=== PATIENT | male | born 1995 | race American Indian/Alaskan Native ===

== ENCOUNTER 2019-11-17 23:57 | Emergency (ER) | payer SELFPAY ==
[2019-11-18] MEDS ORDERED: ZIPRASIDONE MESYLATE 20 MG VIAL IM ONE ×3 (00:21→10:35)
[2019-11-18] MEDS ORDERED: WATER FOR INJ Sterile (PF) 10 ML ONE ×3 (00:22→19:13)
[2019-11-18 01:05] LABS: Bacteria,Urine 1+ /HPF (Negative); Bilirubin,Urine NEG (Negative); Blood,Urine NEG (Negative); Color,Urine Amber (Yellow); Mucus,Urine 3+ /HPF; Urobilinogen,Urine < 2.0 mg/dL (<2.0)
[2019-11-18 01:12] LABS: Amphetamine Screen,Urine PRESUMPTIVE NEGATIVE; Benzodiazepines Screen,Urine PRESUMPTIVE NEGATIVE; Cocaine Screen,Urine PRESUMPTIVE NEGATIVE; Methadone Screen,Urine PRESUMPTIVE NEGATIVE; Opiate Screen,Urine PRESUMPTIVE NEGATIVE
[2019-11-18 01:42] LABS: Cannabinoid Screen,Urine PRESUMPTIVE POSITIVE
[2019-11-18 02:11] LABS: Basophils % (Auto) 0.1 % (0.0-1.8); Eosinophils % (Auto) 0.2 % (0.0-4.3); Hematocrit 44.5 % (35.5-45.6); Lymphocytes # (Auto) 1.2 K/mm3 (1.2-5.4); Lymphocytes % (Auto) 23.4 % (13.4-35.0); Mean Corpuscular HGB Conc 34 % (32-34); Mean Corpuscular Volume 96 fl (84-94); Monocytes # (Auto) 0.3 K/mm3 (0.0-0.8); Monocytes % (Auto) 6.5 % (0.0-7.3); Platelet Count 220 K/mm3 (140-440); Red Blood Count 4.65 M/mm3 (3.65-5.03); Red Cell Distribution Width 12.6 % (13.2-15.2)
[2019-11-18 02:28] LABS: BUN/Creatinine Ratio 9; Blood Urea Nitrogen 9 mg/dL (9-20); Calcium 9.7 mg/dL (8.4-10.2); Hemolysis Index 8
--- NOTE | 2019-11-18 02:44 | Emergency Department Report ---
<VANESA MILLER - Last Filed: 11/18/19 17:14> ED Psych HPI - General Chief Complaint: Medical Clearance Stated Complaint: DETOX Time Seen by Provider: 11/18/19 00:23 - Related Data Home Medications Medication Instructions Recorded Confirmed Last Taken No Known Home Medications [No 11/18/19 11/18/19 Unknown Reported Home Medications] Allergies Allergy/AdvReac Type Severity Reaction Status Date / Time peanut Allergy Hives Verified 11/18/19 00:30 ED Past Medical Hx - Medications Home Medications: Home Medications Medication Instructions Recorded Confirmed Last Taken Type No Known Home Medications [No 11/18/19 11/18/19 Unknown History Reported Home Medications] ED Course - Reevaluation(s) Reevaluation #2: 11/18/19 17:15 Mental health air sampler came to request a 1013 on patient as he is delusional r ecent diagnosis of bipolar having verbal and jainism delusion with hallucination of numbers and faces. ED Medical Decision Making - Lab Data Result diagrams: 11/18/19 01:18 11/18/19 01:18 ED Disposition Clinical Impression: Elsy, Acute psychosis Condition: Stable [facility] [Primary Care Provider] - 3-5 Days <NESSA MEHTA - Last Filed: 11/18/19 23:54> ED Psych HPI - General Source: patient Mode of arrival: Ambulatory - History of Present Illness Initial Comments: The patient is a 24-year-old male who is here stating that he feels very paranoid after smoking marijuana. Patient states that he can't control his thoughts and he is going from the aggressive to crying. Patient does have emotional lability. Patient states this occurred in the past was before smoking marijuana. Patient denies auditory or visual hallucinations or homicidal suicidal ideations. Associated Psychiatric Symptoms: racing thoughts Quality: constant Context: recent drug abuse Associated Symptoms: confusion. denies: headache, shortness of breath, nausea, vomiting, syncope, insomnia Treatments Prior to Arrival: placed on mental he ED Review of Systems ROS: Stated complaint: DETOX Other details as noted in HPI Comment: All other systems reviewed and negative ED Past Medical Hx - Past Medical History Previous Medical History?: Yes Hx Asthma: Yes - Surgical History Past Surgical History?: No - Social History Smoking Status: Former Smoker Substance Use Type: Alcohol, Marijuana ED Physical Exam - General Limitations: No Limitations General appearance: alert, anxious - Head Head exam: Present: atraumatic, normocephalic - Eye Eye exam: Present: normal appearance, PERRL, EOMI - ENT ENT exam: Present: mucous membranes moist - Neck Neck exam: Present: normal inspection - Respiratory Respiratory exam: Present: normal lung sounds bilaterally. Absent: respiratory distress, wheezes, rales, rhonchi - Cardiovascular Cardiovascular Exam: Present: regular rate, normal rhythm, normal heart sounds. Absent: systolic murmur, diastolic murmur, rubs, gallop - GI/Abdominal GI/Abdominal exam: Present: soft, normal bowel sounds. Absent: distended, tenderness, guarding, rebound - Rectal Rectal exam: Present: deferred - Extremities Exam Extremities exam: Present: normal inspection - Back Exam Back exam: Present: normal inspection - Neurological Exam Neurological exam: Present: alert, oriented X3 - Psychiatric Psychiatric exam: Present: normal affect, normal mood - Skin Skin exam: Present: warm, dry, intact, normal color. Absent: rash ED Course Vital Signs 11/18/19 11/18/19 11/18/19 00:04 02:15 07:51 Temperature 97.8 F 98.0 F 97.8 F Pulse Rate 111 H 121 H 86 Respiratory 20 20 18 Rate Blood Pressure 164/102 Blood Pressure 137/94 158/95 [Left] O2 Sat by Pulse 98 96 99 Oximetry - Reevaluation(s) Reevaluation #1: 11/18/19 02:44 Patient placed on mental health hold and will be monitored throughout the night. Reevaluation #3: 11/18/19 23:53 Patient has continued to be hyperverbal and hyper episcopal with flight of ideas and emergency department. Patient had to be given medications for sedation earlier today secondary to him trying to interact with other patients. Patient has been referred to outside psychiatric facilities at this time. ED Medical Decision Making - Lab Data Result diagrams: 11/18/19 01:18 11/18/19 01:18 Lab Results 11/18/19 11/18/19 11/18/19 Range/Units 00:35 00:35 01:18 WBC 5.1 (4.5-11.0) K/mm3 RBC 4.65 (3.65-5.03) M/mm3 Hgb 15.0 (11.8-15.2) gm/dl Hct 44.5 (35.5-45.6) % MCV 96 H (84-94) fl MCH 32 (28-32) pg MCHC 34 (32-34) % RDW 12.6 L (13.2-15.2) % Plt Count 220 (140-440) K/mm3 Lymph % (Auto) 23.4 (13.4-35.0) % [place] % (Auto) 6.5 (0.0-7.3) % Eos % (Auto) 0.2 (0.0-4.3) % Baso % (Auto) 0.1 (0.0-1.8) % Lymph # 1.2 (1.2-5.4) K/mm3 [place] # 0.3 (0.0-0.8) K/mm3 Eos # 0.0 (0.0-0.4) K/mm3 Baso # 0.0 (0.0-0.1) K/mm3 Seg Neutrophils % 69.8 (40.0-70.0) % Seg Neutrophils # 3.5 (1.8-7.7) K/mm3 Sodium (137-145) mmol/L Potassium (3.6-5.0) mmol/L Chloride (98-107) mmol/L Carbon Dioxide (22-30) mmol/L Anion Gap mmol/L BUN (9-20) mg/dL Creatinine (0.8-1.5) mg/dL Estimated GFR ml/min BUN/Creatinine Ratio % Glucose (75-100) mg/dL Calcium (8.4-10.2) mg/dL Urine Color Tania (Yellow) Urine Turbidity Clear (Clear) Urine pH 5.0 (5.0-7.0) Ur Specific Adrian 1.029 (1.003-1.030) Urine Protein 30 mg/dl (Negative) mg/dL Urine Glucose (UA) Neg (Negative) mg/dL Urine Ketones Tr (Negative) mg/dL Urine Blood Neg (Negative) Urine Nitrite Neg (Negative) Urine Bilirubin Neg (Negative) Urine Urobilinogen < 2.0 (<2.0) mg/dL Ur Leukocyte Esterase Neg (Negative) Urine WBC (Auto) 2.0 (0.0-6.0) /HPF Urine RBC (Auto) 2.0 (0.0-6.0) /HPF U Epithel Cells (Auto) < 1.0 (0-13.0) /HPF Urine Bacteria (Auto) 1+ (Negative) /HPF Urine Mucus 3+ /HPF Salicylates (2.8-20.0) mg/dL Urine Opiates Screen Presumptive negative Urine Methadone Screen Presumptive negative Acetaminophen (10.0-30.0) ug/mL Ur Barbiturates Screen Presumptive negative Ur Phencyclidine Scrn Presumptive negative Ur Amphetamines Screen Presumptive negative U Benzodiazepines Scrn Presumptive negative Urine Cocaine Screen Presumptive negative U Marijuana (THC) Screen Presumptive positive Drugs of Abuse Note Disclamer Plasma/Serum Alcohol (0-0.07) % 11/18/19 11/18/19 11/18/19 Range/Units 01:18 01:18 01:18 WBC (4.5-11.0) K/mm3 RBC (3.65-5.03) M/mm3 Hgb (11.8-15.2) gm/dl Hct (35.5-45.6) % MCV (84-94) fl MCH (28-32) pg MCHC (32-34) % RDW (13.2-15.2) % Plt Count (140-440) K/mm3 Lymph % (Auto) (13.4-35.0) % [place] % (Auto) (0.0-7.3) % Eos % (Auto) (0.0-4.3) % Baso % (Auto) (0.0-1.8) % Lymph # (1.2-5.4) K/mm3 [place] # (0.0-0.8) K/mm3 Eos # (0.0-0.4) K/mm3 Baso # (0.0-0.1) K/mm3 Seg Neutrophils % (40.0-70.0) % Seg Neutrophils # (1.8-7.7) K/mm3 Sodium 140 (137-145) mmol/L Potassium 3.6 (3.6-5.0) mmol/L Chloride 100.7 (98-107) mmol/L Carbon Dioxide 23 (22-30) mmol/L Anion Gap 20 mmol/L BUN 9 (9-20) mg/dL Creatinine 1.0 (0.8-1.5) mg/dL Estimated GFR > 60 ml/min BUN/Creatinine Ratio 9 % Glucose 161 H (75-100) mg/dL Calcium 9.7 (8.4-10.2) mg/dL Urine Color (Yellow) Urine Turbidity (Clear) Urine pH (5.0-7.0) Ur Specific Adrian (1.003-1.030) Urine Protein (Negative) mg/dL Urine Glucose (UA) (Negative) mg/dL Urine Ketones (Negative) mg/dL Urine Blood (Negative) Urine Nitrite (Negative) Urine Bilirubin (Negative) Urine Urobilinogen (<2.0) mg/dL Ur Leukocyte Esterase (Negative) Urine WBC (Auto) (0.0-6.0) /HPF Urine RBC (Auto) (0.0-6.0) /HPF U Epithel Cells (Auto) (0-13.0) /HPF Urine Bacteria (Auto) (Negative) /HPF Urine Mucus /HPF Salicylates < 0.3 L (2.8-20.0) mg/dL Urine Opiates Screen Urine Methadone Screen Acetaminophen < 5.0 L (10.0-30.0) ug/mL Ur Barbiturates Screen Ur Phencyclidine Scrn Ur Amphetamines Screen U Benzodiazepines Scrn Urine Cocaine Screen U Marijuana (THC) Screen Drugs of Abuse Note Plasma/Serum Alcohol (0-0.07) % 11/18/19 Range/Units 01:18 WBC (4.5-11.0) K/mm3 RBC (3.65-5.03) M/mm3 Hgb (11.8-15.2) gm/dl Hct (35.5-45.6) % MCV (84-94) fl MCH (28-32) pg MCHC (32-34) % RDW (13.2-15.2) % Plt Count (140-440) K/mm3 Lymph % (Auto) (13.4-35.0) % [place] % (Auto) (0.0-7.3) % Eos % (Auto) (0.0-4.3) % Baso % (Auto) (0.0-1.8) % Lymph # (1.2-5.4) K/mm3 [place] # (0.0-0.8) K/mm3 Eos # (0.0-0.4) K/mm3 Baso # (0.0-0.1) K/mm3 Seg Neutrophils % (40.0-70.0) % Seg Neutrophils # (1.8-7.7) K/mm3 Sodium (137-145) mmol/L Potassium (3.6-5.0) mmol/L Chloride (98-107) mmol/L Carbon Dioxide (22-30) mmol/L Anion Gap mmol/L BUN (9-20) mg/dL Creatinine (0.8-1.5) mg/dL Estimated GFR ml/min BUN/Creatinine Ratio % Glucose (75-100) mg/dL Calcium (8.4-10.2) mg/dL Urine Color (Yellow) Urine Turbidity (Clear) Urine pH (5.0-7.0) Ur Specific Adrian (1.003-1.030) Urine Protein (Negative) mg/dL Urine Glucose (UA) (Negative) mg/dL Urine Ketones (Negative) mg/dL Urine Blood (Negative) Urine Nitrite (Negative) Urine Bilirubin (Negative) Urine Urobilinogen (<2.0) mg/dL Ur Leukocyte Esterase (Negative) Urine WBC (Auto) (0.0-6.0) /HPF Urine RBC (Auto) (0.0-6.0) /HPF U Epithel Cells (Auto) (0-13.0) /HPF Urine Bacteria (Auto) (Negative) /HPF Urine Mucus /HPF Salicylates (2.8-20.0) mg/dL Urine Opiates Screen Urine Methadone Screen Acetaminophen (10.0-30.0) ug/mL Ur Barbiturates Screen Ur Phencyclidine Scrn Ur Amphetamines Screen U Benzodiazepines Scrn Urine Cocaine Screen U Marijuana (THC) Screen Drugs of Abuse Note Plasma/Serum Alcohol < 0.01 (0-0.07) % Critical care attestation.: If time is entered above; I have spent that time in minutes in the direct care of this critically ill patient, excluding procedure time. ED Disposition Is pt being admited?: No Does the pt Need Aspirin: No
[2019-11-18] MEDS ORDERED: diphenhydrAMINE 50 MG/ML VIAL IM ONE ×2 (10:35→19:07)
[2019-11-18] MEDS ORDERED: LORazepam 2 MG/ML VIAL IM ONE (19:07)
[2019-11-18] MEDS: ZIPRASIDONE MESYLATE 20 MG VIAL IM PRN (19:45)
[2019-11-19] MEDS: DIVALPROEX ER 500 MG TAB PO SCH ×2 (00:06→23:10)
[2019-11-19] MEDS: MELATONIN 5 MG TAB PO SCH ×2 (00:06→23:10)
--- NOTE | 2019-11-19 12:56 | Progress Note ---
Subjective - Reason for Consult Consult date: 11/19/19 Reason for consult: psychiatric assessment - Chief Complaint Chief complaint: Reviewed medical record and discussed with nursing staff patient's progress. The nursing note states the patient pt AAOx3, and cooperative, he is responding well to his medications During my interview with the patient today he was sitting in a chair in his room. he is aaox3, he reports eating well but, limited in sleep, he denies SI/HI. He states i wont hurt , I just want to give to everyone, I love my sisters, I am the only boy", His response to questions were delayed, with him smiling at times. the patients stated, " I don't even known how long I have been here", he then said my name isn't aida, it's Frank gibson, and proceed to spell the name and started singing. ROS Constitutional:Negative for weight loss ENT: Negative for stridor Respiratory: Negative for cough All systems reviewed and are negative Mental Status Exam Appearance: aaox4 Behavior: calm and cooperative. Mood: "good" Affect: euthymic Thought Process: Goal directed Speech: low tone Thought Content Harmfulness: Denies Hallucinations: Auditory Delusions: None elicited Consciousness: Alert Cognition/Memory: Fair Insight/Judgment: limited Assessment paranoia Recommendations: Continue recommended treatment Continue 1013 MEDICAL: Per primary team DELIRIUM PRECAUTIONS: Please TURN OFF THE TV, re-orient patient frequently, keep lights on during the day, and minimize and opiates as these medications could worsen patient's confusion. 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 Transfer to appropriate facility once medically cleared. Will reassess the patient's status tomorrow if he has not been transferred. LEGAL STATUS: Involuntary FOLLOW-UP: Will follow until transferred Mental Status Exam - Vital signs Last Vital Signs Temp 98.7 F 11/19/19 10:26 Pulse 114 H 11/19/19 10:26 Resp 16 11/19/19 10:26 BP 169/86 11/19/19 10:26 Pulse Ox 97 11/19/19 10:26
[2019-11-19] MEDS: ZIPRASIDONE MESYLATE 20 MG VIAL IM PRN (17:49)
[2019-11-19] MEDS: traZODone 50 MG TAB PO PRN (23:10)
[2019-11-19] MEDS ORDERED: HALOPERIDOL LACTATE 5 MG/1 ML INJ ONE (23:57)
[2019-11-20] MEDS ORDERED: HALOPERIDOL LACTATE 5 MG/1 ML INJ IM ONE
[2019-11-20] MEDS: ZIPRASIDONE MESYLATE 20 MG VIAL IM PRN ×2 (00:47→18:24)
--- NOTE | 2019-11-20 14:39 | Progress Note ---
Subjective - Reason for Consult Consult date: 11/20/19 Reason for consult: psychiatric eval - Chief Complaint Chief complaint: Reviewed medical record and discussed with nursing staff patient's progress. The nursing notes states that patient became agitated and started banging hard with closed fist on window of his room. Security called and haldol given per verbal order of Dr. Castano. Apporx 10-15 min after security left, pt again began to beat on window of room unable to assess the patient because he was in seclusion. Assessment paranoia Recommendations: Continue recommended treatment Continue 1013 continue schedule medications MEDICAL: Per primary team DELIRIUM PRECAUTIONS: Please TURN OFF THE TV, re-orient patient frequently, keep lights on during the day, and minimize and opiates as these medications could worsen patient's confusion. 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 Transfer to appropriate facility once medically cleared. Will reassess the patient's status tomorrow if he has not been transferred. LEGAL STATUS: Involuntary FOLLOW-UP: Will follow until transferred Mental Status Exam - Vital signs Last Vital Signs Temp 97.4 F L 11/20/19 02:10 Pulse 110 H 11/20/19 02:10 Resp 18 11/20/19 02:10 BP 166/100 11/20/19 02:10 Pulse Ox 100 11/20/19 02:10
[2019-11-20] MEDS: DIVALPROEX ER 500 MG TAB PO SCH (22:01)
[2019-11-20] MEDS: MELATONIN 5 MG TAB PO SCH (22:01)
[2019-11-20] MEDS: traZODone 50 MG TAB PO PRN (22:01)
[2019-11-21] MEDS: ZIPRASIDONE MESYLATE 20 MG VIAL IM PRN ×2 (02:34→10:39)
--- NOTE | 2019-11-21 15:31 | Progress Note ---
Subjective - Reason for Consult Consult date: 11/21/19 Reason for consult: PYCHIATRIC ASSESSMENT - Chief Complaint Chief complaint: Reviewed medical record and discussed with nursing staff patient's progress. The nursing notes states that Pt ambulated to restroom multiple times, asking to call mother, pt given phone to speak to mother, pt then began yelling out for mother to come get him, unable to redirect pt back to room, pt walking into other pt rooms, security and staff assist pt back to room, meds given as ordered for increased anxiety. unable to assess the patient because he was in seclusion. Assessment paranoia Recommendations: Continue recommended treatment Continue 1013 continue schedule medications MEDICAL: Per primary team DELIRIUM PRECAUTIONS: Please TURN OFF THE TV, re-orient patient frequently, keep lights on during the day, and minimize and opiates as these medications could worsen patient's confusion. 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 Transfer to appropriate facility once medically cleared. Will reassess the patient's status tomorrow if he has not been transferred. LEGAL STATUS: Involuntary FOLLOW-UP: Will follow until transferred Mental Status Exam - Vital signs Last Vital Signs Temp 98.5 F 11/21/19 01:52 Pulse 105 H 11/21/19 01:52 Resp 18 11/21/19 01:52 BP 154/90 11/21/19 01:52 Pulse Ox 98 11/21/19 01:52
[2019-11-21 19:11] VITALS: BP 146/89
== END 2019-11-21 19:35 ==
LOC: ED 23:57
DX: F30.9 Manic episode, unspecified (principal); F29 Unspecified psychosis not due to a substance or known physiological condition; J45.909 Unspecified asthma, uncomplicated; F12.10 Cannabis abuse, uncomplicated; Z91.010 Allergy to peanuts; Z87.891 Personal history of nicotine dependence
CPT/HCPCS: 36415; 80048; 80307; 81001; 85025; 96372; 99285; J1200; J1630; J2060; J3486; 80320; G0480